=== PATIENT | female | born 1945 | race Caucasian/White ===

== ENCOUNTER 2016-11-03 11:31 | Observation (INO) | payer OTHER, MEDICARE ==
[~2016-11-03] VITALS: Ht 174 cm; Wt 99.7 kg
[2016-11-03 13:06] LABS: HEMATOCRIT 39.7 % (36.0-46.0); MCV 88.2 FL (83-99); PLATELET COUNT 152 K/uL (156-360); RBC DIS.WIDTH-CV 13.6 % (11.8-14.6); RBC DIS.WIDTH-SD 43.8 % (39-53); WHITE BLOOD COUNT 6.8 K/uL (4.1-10.2)
[2016-11-03 13:30] LABS: CHLORIDE 104 mEq/L (99-109); SODIUM 139 mEq/L (136-147)
[2016-11-03 13:31] LABS: GLUCOSE 129 mg/dL (70-99)
[2016-11-03 13:33] LABS: ANION GAP 8 MEQ/L (2-14)
[2016-11-03 13:35] LABS: GFR ESTIMATE (CALCULATED) > 59 mL/min/
[2016-11-03 13:36] LABS: UREA NITROGEN (BUN) 22 mg/dL (9-23)
[2016-11-03 13:39] LABS: TROP-I INTERPRETATION NEGATIVE; TROPONIN-I < 0.01 ng/mL (0.0-0.30)
[2016-11-03] MEDS ORDERED: SYNTHROID25 MCG PO (14:59)
[2016-11-03] MEDS ORDERED: GABAPENTIN300 MG PO (15:00)
[2016-11-03] MEDS ORDERED: SIMVASTATIN20 MG PO (15:00)
[2016-11-03] MEDS ORDERED: METOPROLOL SUCC25 MG PO (15:00)
[2016-11-03] MEDS ORDERED: METFORMIN HCL500 MG PO (15:00)
[2016-11-03] MEDS ORDERED: VITAMIN D31000 UNIT PO (15:00)
[2016-11-03] MEDS ORDERED: MELOXICAM7.5 MG PO (15:00)
[2016-11-03] MEDS ORDERED: BENICAR HCT 201 EACH PO (15:00)
[2016-11-03] MEDS ORDERED: CALCIUM 500 MG1 EACH PO (15:00)
[2016-11-03] MEDS ORDERED: FISH OIL 1,0001 EAC7 PO (15:01)
[2016-11-03] MEDS ORDERED: LO-DOSE ASPIRIN81 M2 PO (15:01)
[2016-11-03 16:02] VITALS: BP 121/69
[2016-11-03 19:12] VITALS: BP 110/54
[2016-11-03 20:00] LABS: TROP-I INTERPRETATION NEGATIVE; TROPONIN-I < 0.01 ng/mL (0.0-0.30)
[2016-11-03 23:53] VITALS: BP 117/58
[2016-11-04 03:57] LABS: TROP-I INTERPRETATION NEGATIVE; TROPONIN-I < 0.01 ng/mL (0.0-0.30)
[2016-11-04 04:00] VITALS: BP 109/54
[2016-11-04 08:30] VITALS: BP 130/69
[2016-11-04 12:09] VITALS: BP 141/67
[2016-11-04 13:13] LABS: TROP-I INTERPRETATION NEGATIVE; TROPONIN-I 0.01 ng/mL (0.0-0.30)
== END 2016-11-04 15:55 | disposition home or self-care (01) ==
LOC: EME 11:31 → EDOF 14:30 → 5WEST 14:30 → EDOF 14:30 → 5WEST 15:48
PROVIDERS: Family Medicine
DX: I10 Essential (primary) hypertension (principal); R94.31 Abnormal electrocardiogram [ECG] [EKG]; E78.5 Hyperlipidemia, unspecified; E11.9 Type 2 diabetes mellitus without complications; E03.9 Hypothyroidism, unspecified; M81.0 Age-related osteoporosis without current pathological fracture; G25.81 Restless legs syndrome; F41.9 Anxiety disorder, unspecified; M19.90 Unspecified osteoarthritis, unspecified site; I49.1 Atrial premature depolarization; I49.3 Ventricular premature depolarization; M06.9 Rheumatoid arthritis, unspecified; I34.1 Nonrheumatic mitral (valve) prolapse; E55.9 Vitamin D deficiency, unspecified; Z79.84 Long term (current) use of oral hypoglycemic drugs; Z79.82 Long term (current) use of aspirin
CPT/HCPCS: 71020; 80048; 84484; 85027; 93005; 99281; 99285; G0378